=== PATIENT | female | born 1940 | race Caucasian/White ===

== ENCOUNTER → 2017-08-09 | Outpatient (CLI) | payer OTHER ==
--- NOTE | 2017-08-09 09:47 | REP ---
Bilateral screening digital mammogram: There are no palpable abnormalities or other breast complaints. The patient states she has not had a clinical breast exam in over a year. Comparison is 07/07/2011. There is moderately dense heterogeneous breast parenchyma that could obscure a lesion. There are benign secretory calcifications. There has been no interval development of masses, areas of structural distortion or clusters of microcalcifications typical of malignancy. Impression: There is no evidence of malignancy. BIRADS category II benign findings. BI-RADS/ACR category 2 mammogram. Benign finding(s). The patient should have a repeat mammogram in 1 year. This mammogram was interpreted with the aid of an FDA-approved computer-aided detection system. A. Negative x-ray reports should not delay biopsy if a dominant or clinically suspicious mass is present. B. Not all breast cancers are not identified by x-ray. C. Adenosis and dense breasts may obscure an underlying neoplasm. The patient letter being requested is M1.
== END ==
LOC: M WHC 07:43
PROVIDERS: ATTEND Internal Medicine
DX: Z12.31 Encounter for screening mammogram for malignant neoplasm of breast (principal)

== ENCOUNTER → 2018-08-10 | Outpatient (CLI) | payer OTHER | LOC: M WHC 07:44 | DX: Z12.31 Encounter for screening mammogram for malignant neoplasm of breast (principal); Z92.0 Personal history of contraception; Z92.29 Personal history of other drug therapy | CPT/HCPCS: 77067 ==

== ENCOUNTER → 2019-05-21 | Outpatient (REF) | payer MEDICARE, OTHER | LOC: M LAB REF 16:11 | PROVIDERS: ATTEND Nurse Practitioner Family | DX: N39.0 Urinary tract infection, site not specified (principal) ==

== ENCOUNTER → 2019-07-18 | Outpatient (CLI) | payer MEDICARE ==
[~2019-07-18] MED LIST: PROHANCE 279.3MG/ML 15ML VIAL (A9576) As Ordered ONE; PROHANCE 279.3MG/ML 5ML VIAL (A9576) As Ordered ONE
--- NOTE | 2019-07-18 12:15 | REP ---
MRI RIGHT HIP WITH AND WITHOUT CONTRAST: TECHNIQUE: Coronal T1, STIR through the pelvis, T2 fat sat, right hip all three planes, axial oblique proton density fat sat right hip. Axial T1 fat sat, post-IV gadolinium axial and coronal T1 fat sat with the intravenous administration of 18 mL ProHance. 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 There is no occult fracture or evidence of avascular necrosis. There is moderate diffuse spurring at the right hip joint. There is a superior labral tear. Posterior labrum also appears torn and there is diffuse fraying of the anterior labrum. No paralabral cyst is seen. There is a moderate joint effusion. There is some degree of synovial thickening and enhancement suggesting an element of synovitis. Mild ill-defined edema and enhancement is seen in the soft tissues along the greater trochanter of the proximal right femur compatible with greater trochanteric tendinobursitis. Visualized intrapelvic structures appear unremarkable. 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 Moderate joint effusion. Synovial hypertrophy and synovitis. There is a tear of the superior labrum and posterior labrum with diffuse fraying of the anterior labrum. There are findings of mild to moderate greater trochanteric tendinobursitis. No other abnormal enhancement. Electronically Signed by Arnie James MD 07/19/2019 11:19 A
== END ==
LOC: M RAD 08:56
PROVIDERS: ATTEND Physician Assistant Surgical
DX: M16.11 Unilateral primary osteoarthritis, right hip (principal)
CPT/HCPCS: 73723; A9576

== ENCOUNTER → 2019-08-14 | Outpatient (CLI) | payer MEDICARE ==
--- NOTE | 2019-08-14 14:33 | REPMRS ---
Patient History The patient states she had a clinical breast exam in November 2018. No known family history of cancer. Took hormonal contraceptives for 5 years. Took unspecified hormones for 10 years. Digital Woman Screen Mammo: August 14, 2019 - Exam #: [id number] Bilateral CC and MLO view(s) were taken. Technologist: Jessica Rosenbaum, Technologist Prior study comparison: August 10, 2018, bilateral digital woman screen mammo performed at [facility]. August 09, 2017, digital woman screen mammo performed at [facility]. August 03, 2016, digital woman screen mammo performed at [facility]. FINDINGS: There are scattered fibroglandular densities. There has been no change in the appearance of the mammogram from the prior studies. There is a mild amount of scattered fibroglandular density which is fairly symmetric. There is no interval development of dominant mass, architectural distortion, or grouped microcalcification suggestive of malignancy. 3-D tomosynthesis shows no additional findings. Assessment: BI-RADS/ACR category 1 mammogram. Negative Mammogram. Recommendation Routine screening mammogram of both breasts in 1 year (for women over age 40). This patient's Lifetime Breast Cancer Risk is estimated at 1.9 %. This mammogram was interpreted with the aid of an FDA-approved computer-aided dectection system. Electronically Signed By: Everette Ash MD 08/14/19 [id number]
--- NOTE | 2019-08-21 08:43 | DEXA ---
AP SPINE L1 - L4 1.248 0.4 2.2 LT FEMUR TOTAL 0.989 -0.1 1.7 LT NECK 1.007 -0.2 1.8 RT FEMUR TOTAL 0.960 -0.4 1.5 RT NECK 0.967 -0.5 1.5 TOTAL BODY TOTAL OTHER COMMENTS: Normal bone densitometry of the spine and hips. The density of the spine has decreased 10.1% since the initial exam on 01/04/2003. The spine density has decreased 4.7% since the most recent exam on . The density of the left hip has decreased 14.7% since the initial exam on 01/04/2003. The density of the left hip has decreased 7.0% since the most recent exam on 08/03/2016. The density of the right hip has decreased 14.1% since the initial exam on 01/04/2003. The density of the right hip has decreased 4.5% since the most recent exam on 08/03/2016. FOLLOW-UP: Recommendation for the next bone density exam: 5 years. RIK
== END ==
LOC: M WHC 12:45
PROVIDERS: ATTEND Internal Medicine
DX: Z12.31 Encounter for screening mammogram for malignant neoplasm of breast (principal); M85.89 Other specified disorders of bone density and structure, multiple sites

== ENCOUNTER 2020-04-24 02:10 | Emergency (ER) | payer MEDICARE ==
[~2020-04-24] VITALS: Ht 165.1 cm; Wt 91.5 kg
[2020-04-24] MEDS ORDERED: ALLO10TA PO (02:19)
[2020-04-24] MEDS ORDERED: CRES5TAB PO (02:19)
[2020-04-24] MEDS ORDERED: ASPI81CH31 PO (02:19)
[2020-04-24] MEDS ORDERED: IRBE75TA4 PO (02:19)
[2020-04-24] MEDS ORDERED: METF500T13 PO (02:19)
[2020-04-24 03:21] LABS: BASO # 0.1 10^3/uL (0.0-0.2); BASO % 0.4 % (0.0-1.0); EOS # 0.7 10^3/uL (0.0-0.5); EOS % 5.4 % (0.0-3.0); HEMATOCRIT 37.4 % (36.0-47.0); HEMOGLOBIN 12.2 g/dl (12.0-15.5); LYMPH # 2.4 10^3/uL (1.5-5.0); LYMPH % 19.9 % (24.0-44.0); MEAN CORPUSCULAR HEMOGLOBIN 29.8 pg (27.0-33.0); MEAN CORPUSCULAR HGB CONC 32.6 g/dl (32.0-36.5); MEAN CORPUSCULAR VOLUME 91.2 fl (80.0-96.0); MONO # 0.8 10^3/uL (0.0-0.8); MONO % 6.4 % (0.0-5.0); NEUTROPHILS # 8.1 10^3/uL (1.5-8.5); NEUTROPHILS % 67.4 % (36.0-66.0); PLATELET COUNT, AUTOMATED 347 10^3/uL (150-450)
[2020-04-24] MEDS ORDERED: NS 1,000 ML IV ONE (03:30)
[2020-04-24] MEDS ORDERED: TAMSULOSIN 0.4 MG CAP PO ONE (03:30)
[2020-04-24 03:46] LABS: ALBUMIN 3.9 GM/DL (3.2-5.2); ALT/SGPT 16 U/L (12-78); BILIRUBIN,DIRECT 0.1 MG/DL (0.0-0.2); BILIRUBIN,TOTAL 0.3 MG/DL (0.2-1.0); BLOOD UREA NITROGEN 11 MG/DL (7-18); CALCIUM LEVEL 9.2 MG/DL (8.8-10.2); CARBON DIOXIDE LEVEL 25 MEQ/L (21-32); CHLORIDE LEVEL 108 MEQ/L (98-107); CREATININE FOR GFR 0.68 MG/DL (0.55-1.30); GLOMERULAR FILTRATION RATE > 60.0 (>39); GLUCOSE, FASTING 121 MG/DL (70-100); LIPASE 92 U/L (73-393); POTASSIUM SERUM 4.1 MEQ/L (3.5-5.1); SODIUM LEVEL 143 MEQ/L (136-145)
[2020-04-24] MEDS ORDERED: KETOROLAC 30 MG/ML 1ML VIAL As Ordered ONE (03:54)
--- NOTE | 2020-04-24 03:58 | REPVR ---
PROCEDURE INFORMATION: Exam: CT Abdomen And Pelvis Without Contrast Exam date and time: 04/24/2020 3:06 AM Age: 79 years old Clinical indication: Abdominal pain; Flank; Right; Additional info: R colic TECHNIQUE: Imaging protocol: Computed tomography of the abdomen and pelvis without contrast. Radiation optimization: All CT scans at this facility use at least one of these dose optimization techniques: automated exposure control; mA and/or kV adjustment per patient size (includes targeted exams where dose is matched to clinical indication); or iterative reconstruction. COMPARISON: MRI HIP W/O FOL WITH CONTRAST 07/18/2019 9:36 AM FINDINGS: Lungs: Mild increased interstitial markings in bilateral lungs likely chronic. Density in the right cardiophrenic angle measuring 12.7 mm may represent atelectasis, however, lung nodule cannot be completely excluded, further evaluation with nonemergent CT chest is recommended. Liver: Normal. No mass. Gallbladder and bile ducts: Status post cholecystectomy. Pancreas: Normal. No ductal dilation. Spleen: Normal. No splenomegaly. Adrenals: Normal. No mass. Kidneys and ureters: Moderate right-sided hydroureteronephrosis with perinephric and periureteric stranding secondary to an obstructing stone in the proximal right ureter measuring approximately 4.9 mm. No other renal stones are seen bilaterally. Stomach and bowel: Unremarkable. No obstruction. No mucosal thickening. Appendix: No evidence of appendicitis. Intraperitoneal space: Unremarkable. No free air. No significant fluid collection. Vasculature: Atherosclerosis of the aorta. Lymph nodes: Unremarkable. No enlarged lymph nodes. Bladder: Unremarkable as visualized. Reproductive: Unremarkable as visualized. Bones/joints: Right fo hip arthroplasty with intact surgical hardware. Demineralization of the bones. Degenerative changes Soft tissues: Unremarkable. IMPRESSION: Moderate right-sided hydroureteronephrosis with perinephric and periureteric stranding secondary to an obstructing stone in the proximal right ureter measuring approximately 4.9 mm. No other renal stones are seen bilaterally. Distal right ureter is difficult to evaluate secondary to beam hardening artifact from right hip arthroplasty. Electronically signed by: Gloria Brink On 04/24/2020 03:58:27 AM
[2020-04-24] MEDS ORDERED: KETOROLAC 30 MG/ML 1ML VIAL IV ONE (04:00)
[2020-04-24] MEDS ORDERED: FLAG500T PO (04:07)
[2020-04-24] MEDS ORDERED: CIPR-249 PO ×2 (04:07→04:52)
[2020-04-24] MEDS ORDERED: CIPROFLOXACIN 500MG TABLET PO ONE (04:45)
[2020-04-24] MEDS ORDERED: FLOM0.4C39 PO (04:53)
[2020-04-24 04:58] VITALS: BP 152/78
--- NOTE | 2020-05-07 12:39 | ECGEPIP ---
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
[2020-06-27] MEDS ORDERED: CENT1TAB PO (13:18)
[2020-06-27] MEDS ORDERED: CINN500C15 PO (13:18)
[2020-06-27] MEDS ORDERED: CIDA500T2 PO (13:18)
[2020-06-27] MEDS ORDERED: CALC-218 PO (13:18)
== END 2020-04-24 05:08 | disposition home or self-care (01) ==
LOC: M ED 02:10
DX: N20.1 Calculus of ureter (principal); E11.9 Type 2 diabetes mellitus without complications; I10 Essential (primary) hypertension; E78.5 Hyperlipidemia, unspecified; Z79.899 Other long term (current) drug therapy; Z79.84 Long term (current) use of oral hypoglycemic drugs; Z79.82 Long term (current) use of aspirin; Z88.5 Allergy status to narcotic agent; Z87.891 Personal history of nicotine dependence
CPT/HCPCS: 74176; 80048; 80076; 81001; 83690; 85025; 87086; 93005; 96361; 96374; 99284; J1885

== ENCOUNTER → 2020-05-08 | Outpatient (CLI) | payer MEDICARE ==
[~2020-05-08] MED LIST changes: +ALLO10TA PO; +ASPI81CH31 PO; +BISO5TAB14 PO; +CALC-218 PO; +CENT1TAB PO; +CIDA500T2 PO; +CINN500C15 PO; +CIPR-249 PO; +CRES5TAB PO; +FLAG500T PO; +FLOM0.4C39 PO; +IRBE75TA4 PO; +KETO10TAB PO; +LEVOTAB10 PO; +METF500T13 PO; -PROHANCE 279.3MG/ML 15ML VIAL (A9576) As Ordered ONE; -PROHANCE 279.3MG/ML 5ML VIAL (A9576) As Ordered ONE; +SULF1TAB93
--- NOTE | 2020-05-29 11:53 | REP ---
ABDOMINAL RADIOGRAPH CLINICAL: Abdominal pain. TECHNIQUE: Two supine views of the abdomen and pelvis. FINDINGS: Bowel gas pattern is nonspecific. Skeletal structures demonstrate age-related changes and evidence for right hip replacement. Phlebolith noted in the pelvis. IMPRESSION: Nonspecific bowel gas pattern. MTDD
== END ==
LOC: M ADAMS 10:09
PROVIDERS: ATTEND Urology
DX: N20.0 Calculus of kidney (principal); I87.8 Other specified disorders of veins

== ENCOUNTER → 2020-05-22 | Outpatient (CLI) | payer SELFPAY | LOC: M LABSMTC 09:37 | PROVIDERS: ATTEND Pediatrics | DX: Z20.828 Contact with and (suspected) exposure to other viral communicable diseases (principal) ==

== ENCOUNTER → 2020-05-26 | Outpatient (CLI) | payer MEDICARE ==
--- NOTE | 2020-06-04 07:26 | REP ---
KUB: 2 VIEWS HISTORY: N20 COMPARISON: KUB study 05/08/2020. CT abdomen and pelvis 04/24/2020. FINDINGS: There are phleboliths bilaterally in the true pelvis. Bowel gas pattern is normal. Psoas margins are symmetric. A prosthetic right hip is noted. There are degenerative spondylosis changes in the spine. There is a calcific opacity overlying the traverse process of L5 on the right which may be in the distal ureter. This is approximately the location of the calcification at the time of the CT study 04/24/2020. No other urinary tract calculus is visible. IMPRESSION: Possible distal right ureteral calculus overlying the right transverse process of L5, 6mm in diameter. Otherwise negative. MTDD
== END ==
LOC: M ADAMS 11:11
PROVIDERS: ATTEND Urology
DX: N20.0 Calculus of kidney (principal)

== ENCOUNTER → 2020-06-18 | Outpatient (CLI) | payer MEDICARE ==
--- NOTE | 2020-06-18 10:37 | REP ---
INDICATION: URETERAL CALCULUS COMPARISON: 05/26/2020 TECHNIQUE: Supine view of the abdomen and pelvis. FINDINGS: No obvious urinary tract calcifications are appreciated. Few calcifications within the pelvis remains stable and likely represent phleboliths. The bowel gas pattern is nonspecific. The skeletal structures are stable. IMPRESSION: Normal abdominal radiograph. No obvious urinary tract calcifications identified. <Electronically signed by Jose F Alba > 06/18/20 103
== END ==
LOC: M ADAMS 10:20
PROVIDERS: ATTEND Urology
DX: N20.1 Calculus of ureter (principal)

== ENCOUNTER 2020-06-19 19:10 | Emergency (ER) | payer MEDICARE ==
[~2020-06-19] VITALS: Ht 167.6 cm; Wt 89.8 kg
[~2020-06-19 19:10] MED LIST changes: -BISO5TAB14 PO; -CALC-218 PO; -CENT1TAB PO; -CIDA500T2 PO; -CINN500C15 PO; -KETO10TAB PO; -LEVOTAB10 PO; -SULF1TAB93
[2020-06-19] MEDS ORDERED: BISO5TAB14 PO (19:23)
[2020-06-19] MEDS ORDERED: LEVOTAB10 PO (19:23)
[2020-06-19] MEDS ORDERED: KETOROLAC 30 MG/ML 1ML VIAL IV ONE (20:15)
[2020-06-19 20:43] LABS: BASO % 0.3 % (0.0-1.0); EOS # 0.5 10^3/uL (0.0-0.5); EOS % 3.8 % (0.0-3.0); HEMATOCRIT 41.1 % (36.0-47.0); HEMOGLOBIN 12.8 g/dl (12.0-15.5); LYMPH # 3.4 10^3/uL (1.5-5.0); MEAN CORPUSCULAR HEMOGLOBIN 27.8 pg (27.0-33.0); MEAN CORPUSCULAR HGB CONC 31.1 g/dl (32.0-36.5); MEAN CORPUSCULAR VOLUME 89.3 fl (80.0-96.0); MONO # 0.8 10^3/uL (0.0-0.8); MONO % 6.6 % (0.0-5.0); NEUTROPHILS # 7.4 10^3/uL (1.5-8.5); NEUTROPHILS % 60.7 % (36.0-66.0); PLATELET COUNT, AUTOMATED 347 10^3/uL (150-450); WHITE BLOOD COUNT 12.2 10^3/uL (4.0-10.0)
--- NOTE | 2020-06-19 21:02 | REPVR ---
PROCEDURE INFORMATION: Exam: CT Abdomen And Pelvis Without Contrast Exam date and time: 06/19/2020 8:25 PM Age: 79 years old Clinical indication: Abdominal pain; Additional info: R flank pain hematuria HX of kidney stones TECHNIQUE: Imaging protocol: Computed tomography of the abdomen and pelvis without contrast. Radiation optimization: All CT scans at this facility use at least one of these dose optimization techniques: automated exposure control; mA and/or kV adjustment per patient size (includes targeted exams where dose is matched to clinical indication); or iterative reconstruction. COMPARISON: CT ABD PELVIS W/O CONTRAST 04/24/2020 3:12 AM FINDINGS: Lungs: Stable pleuroparenchymal scarring at the left lung base posteriorly. Liver: There are no focal liver lesions. Gallbladder and bile ducts: The gallbladder is unremarkable. Pancreas: Pancreas is atrophic. Spleen: The spleen is normal. Adrenals: The adrenal glands are unremarkable. Kidneys and ureters: Right hydronephrosis and hydroureter with a 7 mm obstructing calculus at the level of the lumbosacral junction having moved inferiorly in comparison to the prior study. There is marked perinephric stranding and a small perinephric fluid collection similar to the prior study. No additional renal calculi are apparent bilaterally. Stomach and bowel: There is no evidence of intestinal obstruction. Appendix: No evidence of appendicitis. Intraperitoneal space: Unremarkable. No free air. No significant fluid collection. Vasculature: There is no evidence of an infrarenal abdominal aortic aneurysm. The arteries demonstrates diffuse moderate atherosclerotic calcification. Lymph nodes: Unremarkable. No enlarged lymph nodes. Urinary bladder: The urinary bladder is poorly visualized due to artifact from the right hip prosthesis. Reproductive: Unremarkable as visualized. Bones/joints: Right total hip replacement. Skeletal degeneration. Soft tissues: There is a fat-containing umbilical hernia. There is prominent edema in the left buttock. IMPRESSION: There is right hydronephrosis and hydroureter to the level an obstructing 7 mm calculus in the right mid ureter having moved inferiorly in comparison the prior study. There is persistent perinephric stranding and perinephric fluid collection. Electronically signed by: Sury Mims On 06/19/2020 21:02:20 PM
[2020-06-19 21:08] LABS: ALBUMIN 4.2 GM/DL (3.2-5.2); ALT/SGPT 18 U/L (12-78); BILIRUBIN,DIRECT 0.1 MG/DL (0.0-0.2); BILIRUBIN,TOTAL 0.4 MG/DL (0.2-1.0); BLOOD UREA NITROGEN 12 MG/DL (7-18); CALCIUM LEVEL 9.9 MG/DL (8.8-10.2); CARBON DIOXIDE LEVEL 27 MEQ/L (21-32); CHLORIDE LEVEL 105 MEQ/L (98-107); CREATININE FOR GFR 0.81 MG/DL (0.55-1.30); GLOMERULAR FILTRATION RATE > 60.0 (>39); GLUCOSE, FASTING 101 MG/DL (70-100); LIPASE 160 U/L (73-393); POTASSIUM SERUM 4.2 MEQ/L (3.5-5.1); SODIUM LEVEL 140 MEQ/L (136-145); TOTAL PROTEIN 7.5 GM/DL (6.4-8.2)
[2020-06-19] MEDS ORDERED: FLOM0.4C39 PO (21:21)
[2020-06-19] MEDS ORDERED: KETO10TAB PO (21:21)
[2020-06-19 21:25] VITALS: BP 166/68
[2020-06-27] MEDS ORDERED: CINN500C15 PO (13:18)
[2020-06-27] MEDS ORDERED: CENT1TAB PO (13:18)
[2020-06-27] MEDS ORDERED: CALC-218 PO (13:18)
[2020-06-27] MEDS ORDERED: CIDA500T2 PO (13:18)
== END 2020-06-19 21:35 | disposition home or self-care (01) ==
LOC: M ED 19:10
DX: N20.1 Calculus of ureter (principal); E11.9 Type 2 diabetes mellitus without complications; Z79.82 Long term (current) use of aspirin; Z79.84 Long term (current) use of oral hypoglycemic drugs; Z79.899 Other long term (current) drug therapy; Z88.6 Allergy status to analgesic agent
CPT/HCPCS: 74176; 80048; 80076; 81001; 83690; 85025; 87086; 96374; 99284; J1885

== ENCOUNTER → 2020-06-23 | Outpatient (CLI) | payer MEDICARE ==
[~2020-06-23] MED LIST changes: +BISO5TAB14 PO; +CALC-218 PO; +CENT1TAB PO; +CIDA500T2 PO; +CINN500C15 PO; +KETO10TAB PO; +LEVOTAB10 PO; +SULF1TAB93
[2020-06-23 09:55] LABS: HEMATOCRIT 39.7 % (36.0-47.0); HEMOGLOBIN 12.4 g/dl (12.0-15.5); MEAN CORPUSCULAR HEMOGLOBIN 28.4 pg (27.0-33.0); MEAN CORPUSCULAR HGB CONC 31.2 g/dl (32.0-36.5); MEAN CORPUSCULAR VOLUME 90.8 fl (80.0-96.0); PLATELET COUNT, AUTOMATED 324 10^3/uL (150-450); RED BLOOD COUNT 4.37 10^6/uL (4.00-5.40); WHITE BLOOD COUNT 8.5 10^3/uL (4.0-10.0)
[2020-06-23 10:31] LABS: BLOOD UREA NITROGEN 10 MG/DL (7-18); CALCIUM LEVEL 9.8 MG/DL (8.8-10.2); CARBON DIOXIDE LEVEL 29 MEQ/L (21-32); CHLORIDE LEVEL 107 MEQ/L (98-107); CREATININE FOR GFR 0.68 MG/DL (0.55-1.30); GLOMERULAR FILTRATION RATE > 60.0 (>39); GLUCOSE, FASTING 115 MG/DL (70-100); POTASSIUM SERUM 4.1 MEQ/L (3.5-5.1); SODIUM LEVEL 142 MEQ/L (136-145); URIC ACID 4.9 MG/DL (2.6-6.0)
--- NOTE | 2020-06-23 13:31 | ECGEPIP ---
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 Electronically Signed on 06-23-2020 13:31:21 EDT by Misbah Hoyos
[2020-06-23 14:16] LABS: BACTERIA, URINE AUTO 1+ (NEGATIVE); CALCIUM OXALATE CRYSTALS MODERATE; MUCUS, URINE SMALL (NEGATIVE); RBC, URINE AUTO 4 /HPF (0-3); SQUAMOUS EPITHELIAL CELL UR AU 0 /HPF (0-6); WBC, URINE AUTO 37 /HPF (0-3)
== END ==
LOC: M LAB 09:09
PROVIDERS: ATTEND Specialist
DX: Z01.818 Encounter for other preprocedural examination (principal); N13.2 Hydronephrosis with renal and ureteral calculous obstruction
CPT/HCPCS: 36415; 80048; 81015; 84550; 85027; 87086; 93005; G0463

== ENCOUNTER → 2020-06-25 | Outpatient (CLI) | payer MEDICARE | LOC: M LABSMTC 09:36 | PROVIDERS: ATTEND Anesthesiology | DX: Z01.818 Encounter for other preprocedural examination (principal) | CPT/HCPCS: C9803; U0003 ==

== ENCOUNTER 2020-06-30 07:25 | Day surgery (SDC) | payer MEDICARE ==
[~2020-06-30] VITALS: Ht 165.1 cm; Wt 86.2 kg
[~2020-06-30 07:25] MED LIST changes: +LIDOCAINE 1% MDV 20ML VIAL SQ PRN; +LIDOCAINE 2% 100MG/5ML SDV (FOR ANES.) As Ordered ONE; +ONDANSETRON 4MG/2ML VIAL As Ordered ONE; -SULF1TAB93; +dexameTHASONE 4 MG/ML 1ML VIAL (J1100 PER 1MG) As Ordered ONE; +fentaNYL 100 MCG/2 ML INJECTION (J3010) As Ordered ONE; +propofoL 200 MG/20 ML VIAL As Ordered ONE
[2020-06-30] MEDS ORDERED: LR 1,000 ML IV ONE (07:30)
[2020-06-30] MEDS ORDERED: ceFAZolin SOD 2 GM in IV 1 EA IV ONE (07:30)
[2020-06-30] MEDS ORDERED: SULF1TAB93 (08:06)
[2020-06-30] MEDS: CONRAY-60 60% 50ML VIAL (Q9961) As Ordered ONE (08:28)
[2020-06-30] MEDS ORDERED: ePHEDrine SULFATE 25 MG/5 ML(5MG/ML) SYRINGE As Ordered ONE (09:02)
[2020-06-30] MEDS ORDERED: PHENYLephrine HCL 500 MCG/5 ML (100MCG/ML) SYRINGE (J2370) As Ordered ONE (09:07)
[2020-06-30] MEDS ORDERED: ACETAMINOPHEN 1000MG 100ML IV BTL (OFIRMEV) (J0131 PER 10MG) As Ordered ONE (09:26)
[2020-06-30] MEDS ORDERED: METOCLOPRAMIDE INJ 10MG/2ML VIAL (J2765 PER 1) As Ordered ONE (09:27)
--- NOTE | 2020-06-30 09:35 | REP ---
INDICATION: RIGHT URETERAL STENT PLACEMENT. COMPARISON: CT abdomen pelvis 06/19/2020 TECHNIQUE: Single C-arm image provided for right ureteral stent placement under fluoroscopic guidance. FINDINGS: A single image provided shows the stent coiled proximally overlying expected position of the renal fossa. Along its course no definite stones are seen. Is distal course in the pelvis below the SI joints is not included in the field of view. Fluoroscopy time: 6 seconds. 0.7 mGy. IMPRESSION: Status post intraoperative placement of right ureteral stent. <Electronically signed by Alonzo Jernigan > 06/30/20 0931
[2020-06-30] MEDS ORDERED: ONDANSETRON 4MG/2ML VIAL As Ordered ONE (09:47)
--- NOTE | 2020-06-30 09:58 | ROOPDOC ---
[facility] Report Of Operation Report of Operation DATE OF PROCEDURE: 06/30/20 PREPROCEDURE DIAGNOSES: 7 mm right mid ureteral stone since March 2020. POSTPROCEDURE DIAGNOSES: Same PROCEDURE: Cystoscopy, right ureteroscopy, right laser lithotripsy, right ureteral stent placement SURGEON: Marisa Jaramillo MD CLAM BED WORKER: None ANESTHESIA: General ESTIMATED BLOOD LOSS: Approximately 0 mL. COMPLICATIONS: None REMARKS: Stone broken into very small fragments PROCEDURE NOTE: The patient is a 79-year-old female who had a right ureteral stone first seen in the emergency room back in March 2020 and then again 06/19/20 with complaints of right flank pain. She was seen in the office and scheduled for right ureteroscopy and stone manipulation with removal. All options, alternatives, risks, benefits were discussed and informed consent was obtained in both verbal and written form. DESCRIPTION OF PROCEDURE: The patient was brought into the operating room and anesthesia was induced. She was then prepped and draped in usual fashion in the lithotomy position. A 21 [place] cystoscope was inserted and both ureteral orifices were seen and there was no evidence of stones erythematous patches, lesions, or other abnormalities. Under fluoroscopic guidance attempted to place a guidewire up to the right renal pelvis but it would not pass the stone. I was able though to pass the ureteroscope over the wire until the stone was seen. At this point laser was used and the stone was broken into very small fragments. The wire was then replaced and a 6 [place] double-J universal stent was placed into the right renal pelvis and into the bladder. The wire was removed. The patient tolerated the procedure well and was returned to the recovery room in stable condition. She will return to the office for cystoscopy and stent removal within the next couple weeks. MARISA JARAMILLO MD Jun 30, 2020 09:58
[2020-06-30] MEDS ORDERED: fentaNYL 100 MCG/2 ML INJECTION (J3010) As Ordered ONE (10:11)
[2020-06-30] MEDS ORDERED: oxyCODONE 5MG TAB As Ordered ONE (10:11)
[2020-06-30] MEDS ORDERED: fentaNYL 100 MCG/2 ML INJECTION (J3010) IV PRN (10:30)
[2020-06-30] MEDS ORDERED: LR 1,000 ML IV SCH (10:30)
[2020-06-30] MEDS ORDERED: ONDANSETRON 4MG/2ML VIAL IV PRN (10:30)
[2020-06-30] MEDS ORDERED: MEPERIDINE INJ 25 MG/ML VIAL (J2175) IV PRN (10:30)
[2020-06-30] MEDS ORDERED: METOCLOPRAMIDE INJ 10MG/2ML VIAL (J2765 PER 1) IV PRN (10:30)
[2020-06-30] MEDS ORDERED: oxyCODONE 5MG TAB PO PRN (10:30)
[2020-06-30 11:18] VITALS: BP 153/69
== END 2020-06-30 11:18 | disposition home or self-care (01) ==
LOC: M SDC 07:25
PROVIDERS: ATTEND Specialist
DX: N20.0 Calculus of kidney (principal); E78.5 Hyperlipidemia, unspecified; I10 Essential (primary) hypertension; Z79.82 Long term (current) use of aspirin; Z79.899 Other long term (current) drug therapy; E11.9 Type 2 diabetes mellitus without complications; Z88.5 Allergy status to narcotic agent
CPT/HCPCS: 52356; 74420; C1769; C2617; J0131; J0690; J1100; J2370; J2405; J2765; J3010; Q9961

== ENCOUNTER → 2020-08-14 | Outpatient (CLI) | payer MEDICARE ==
[~2020-08-14] MED LIST changes: -LIDOCAINE 1% MDV 20ML VIAL SQ PRN; -LIDOCAINE 2% 100MG/5ML SDV (FOR ANES.) As Ordered ONE; -ONDANSETRON 4MG/2ML VIAL As Ordered ONE; +SULF1TAB93; -dexameTHASONE 4 MG/ML 1ML VIAL (J1100 PER 1MG) As Ordered ONE; -fentaNYL 100 MCG/2 ML INJECTION (J3010) As Ordered ONE; -propofoL 200 MG/20 ML VIAL As Ordered ONE
--- NOTE | 2020-08-14 08:44 | REPMRS ---
Patient History No known family history of cancer. Took hormonal contraceptives for 5 years. Took unspecified hormones for 10 years. Digital Woman Screen Mammo: August 14, 2020 - Exam #: [id number] Bilateral CC and MLO view(s) were taken. Technologist: Florinda Fox, Technologist Prior study comparison: August 14, 2019, bilateral digital woman screen mammo performed at [facility]. August 10, 2018, bilateral digital woman screen mammo performed at [facility]. August 09, 2017, digital woman screen mammo performed at [facility]. FINDINGS: There are scattered fibroglandular densities. The Volpara volumetric breast density category is:B. There has been no change in the appearance of the mammogram from the prior studies. There is a mild amount of scattered fibroglandular density which is fairly symmetric. There is no interval development of dominant mass, architectural distortion, or grouped microcalcification suggestive of malignancy. 3-D tomosynthesis shows no additional findings. Assessment: BI-RADS/ACR category 1 mammogram. Negative Mammogram. Recommendation Routine screening mammogram of both breasts in 1 year (for women over age 40). This patient's [facility] Lifetime Breast Cancer Risk is estimated at 1.7 %. This mammogram was interpreted with the aid of an FDA-approved computer-aided dectection system. Electronically Signed By: Everette Ash MD 08/14/20 0844
== END ==
LOC: M WHC 07:46
PROVIDERS: ATTEND Internal Medicine
DX: Z12.31 Encounter for screening mammogram for malignant neoplasm of breast (principal); Z92.0 Personal history of contraception

== ENCOUNTER → 2020-08-20 | Outpatient (CLI) | payer MEDICARE ==
--- NOTE | 2020-08-20 09:59 | REP ---
INDICATION: HYDRONEPHROSIS WITH RENAL AND URETERAL CALCULOUS OBSTRUCTION COMPARISON: CT dated 06/19/2020 TECHNIQUE: Real time rodriguez scale ultrasound examination using curved array transducer. FINDINGS: The bilateral kidneys are normal in contour, size, echogenicity, and reniform shape. No hydronephrosis, nephrolithiasis, cystic or renal mass lesion. No perinephric fluid collection. Right kidney measures 11.7 x 4.5 x 4.3 cm. Left kidney measures 11.8 x 4.5 x 5.1 cm. IMPRESSION: Normal renal ultrasound. No hydronephrosis or obvious nephrolithiasis. The right-sided obstructive hydronephrosis on recent CT has resolved. <Electronically signed by Jose F Alba > 08/20/20 0964
== END ==
LOC: M RAD 08:55
PROVIDERS: ATTEND Urology
DX: N20.1 Calculus of ureter (principal)

== ENCOUNTER → 2021-02-09 | Outpatient (CLI) | payer MEDICARE ==
[~2021-02-09] MED LIST changes: +BACTDSTA; -SULF1TAB93
--- NOTE | 2021-02-09 11:39 | REPPI ---
INDICATION: N20.1 URETERAL CALCULUS COMPARISON: 06/18/2020 TECHNIQUE: Three supine views of the abdomen and pelvis. FINDINGS: Evaluation of the urinary tract system is significantly limited due to underpenetration and overlying bowel gas. Calcifications within the pelvis are nonspecific but predominately stable and likely represent phleboliths. Urinary tract calcifications cannot definitively be excluded based on current exam. IMPRESSION: Urinary tract calcifications cannot be excluded based on current examination. <Electronically signed by Jose F Alba > 02/09/21 [id number]
== END ==
LOC: M PLAIMG 08:42
PROVIDERS: ATTEND Urology
DX: I80.9 Phlebitis and thrombophlebitis of unspecified site (principal)

== ENCOUNTER → 2022-02-11 | Outpatient (CLI) | payer MEDICARE | LOC: M WHC 11:03 | PROVIDERS: ATTEND Internal Medicine | DX: Z12.31 Encounter for screening mammogram for malignant neoplasm of breast (principal); Z78.0 Asymptomatic menopausal state; Z92.29 Personal history of other drug therapy ==

== ENCOUNTER → 2023-02-14 | Outpatient (CLI) | payer MEDICARE | LOC: M WHC 12-31 13:11 | PROVIDERS: ATTEND Internal Medicine | DX: Z12.31 Encounter for screening mammogram for malignant neoplasm of breast (principal) ==

== ENCOUNTER → 2023-03-28 | Outpatient (REF) | payer MEDICARE | LOC: M LAB REF 11:59 | PROVIDERS: ATTEND Internal Medicine | DX: N39.0 Urinary tract infection, site not specified (principal) ==

== ENCOUNTER → 2023-12-12 | Outpatient (REF) | payer MEDICARE ==
[~2023-12-12] MED LIST changes: +IRBE75TA11 PO; -IRBE75TA4 PO
== END ==
LOC: M LAB REF 16:34
PROVIDERS: ATTEND Internal Medicine
DX: R35.0 Frequency of micturition (principal); R30.0 Dysuria; N39.0 Urinary tract infection, site not specified

== ENCOUNTER → 2024-01-17 | Outpatient (REF) | payer MEDICARE | LOC: M LAB REF 16:14 | PROVIDERS: ATTEND Internal Medicine | DX: R35.0 Frequency of micturition (principal); R31.9 Hematuria, unspecified ==

== ENCOUNTER → 2024-01-24 | Outpatient (REF) | payer MEDICARE | LOC: M LAB REF 12:25 | PROVIDERS: ATTEND Internal Medicine | DX: R35.0 Frequency of micturition (principal); R30.0 Dysuria ==

== ENCOUNTER → 2024-01-30 | Outpatient (REF) | payer MEDICARE | LOC: M LAB REF 11:49 | PROVIDERS: ATTEND Internal Medicine | DX: R35.0 Frequency of micturition (principal); R30.0 Dysuria ==

== ENCOUNTER → 2024-02-17 | Outpatient (CLI) | payer MEDICARE | LOC: M WHC 11:17 | PROVIDERS: ATTEND Internal Medicine | DX: Z12.31 Encounter for screening mammogram for malignant neoplasm of breast (principal) ==